=== PATIENT | male | born 1950 ===

== ENCOUNTER 2021-04-03 09:57 | Outpatient (CLI) | payer OTHER | END 2021-04-03 10:09 | disposition home or self-care (01) | LOC: RAD 09:57 | PROVIDERS: ATTEND Orthopaedic Surgery | DX: M17.0 Bilateral primary osteoarthritis of knee (principal); M25.561 Pain in right knee; M25.562 Pain in left knee ==

== ENCOUNTER 2021-04-07 07:12 | Outpatient (CLI) | payer OTHER | END 2021-04-07 07:35 | disposition home or self-care (01) | LOC: MRI 07:12 | PROVIDERS: ATTEND Orthopaedic Surgery | DX: M17.0 Bilateral primary osteoarthritis of knee (principal); M25.562 Pain in left knee; M25.561 Pain in right knee | CPT/HCPCS: 73718 ==